=== PATIENT | female | born 1990 | race Caucasian/White ===

== ENCOUNTER → 2016-10-04 | Outpatient (CLI) | payer BC ==
[~2016-10-04] MED LIST: CRESTOR10 MG PO; LOPID600 M1 PO; Lortab 5/500 501 TAB PO; SYNTHROID,LEV100 MCG PO; SYNTHROID,LEVO75 MCG PO; ZITHROMAX250 MG PO; ZOFRAN ODT4 MG SL
== END | disposition home or self-care (01) ==
LOC: US 07:20
DX: K80.20 Calculus of gallbladder without cholecystitis without obstruction (principal)

== ENCOUNTER → 2016-11-07 | Day surgery (SDC) | payer BC ==
[~2016-11-07] VITALS: Ht 165.1 cm; Wt 90.7 kg
[~2016-11-07] MED LIST changes: +BIRTH CONTROL PO; +HYDROCODONE BIT1 T11 PO; +NORCO 10-325 T1 EACH PO
--- NOTE | ~2016-11-07 | O ---
[place], [place] O[facility]AT[id number] UNIT #: [id number] ROOM: DOCTOR: FRANK DIMAS MD BIRTHDATE: [birth year] DOS: 11/07/2016 PREOPERATIVE DIAGNOSIS: Symptomatic gallstones. POSTOPERATIVE DIAGNOSIS: Symptomatic gallstones. PROCEDURE: Laparoscopic cholecystectomy. SURGEON: Frank Dimas MD [employer]SHM[employer]OW MAKER: MS3. ANESTHESIA: General with endotracheal intubation. INDICATIONS: This is a 26-year-old lady with a history of symptomatic gallstones, who is here for the above-mentioned procedure. The procedure and its complications were explained to the patient in detail. Complications that were discussed included but were not limited to bleeding, infection, hematoma/seroma/abscess formation, biloma formation, inadvertent injury to the common bile duct and incisional hernia formation and prolonged postoperative pain. She agreed to proceed. DESCRIPTION OF PROCEDURE: After identifying the patient, the patient was brought to the operating suite and laid in the supine position. After induction of general anesthesia, timeout procedure was called and the parts were then painted and draped in the usual sterile fashion. An incision was made in a curvilinear fashion below the umbilicus. The skin and the subcutaneous tissue were incised. The fascia was incised and 2 stay sutures with 0 Vicryl were taken on either side. The peritoneum was opened and a 12 mm Juancarlos port was introduced into the peritoneal cavity. Pneumoperitoneum was created. Under direct vision, an epigastric incision of 10 mm and two 5 mm incisions were made in the right upper quadrant and appropriate size ports were introduced. The gallbladder was retracted superiorly and laterally and multiple chronic omental adhesions were taken down with the help of blunt dissection with the help of electrocautery. Thereafter, the cystic duct and the cystic artery were meticulously dissected until the critical view of safety was obtained and the triangle of Calot was identified. Thereafter, the cystic duct was clipped 3 times and cut between the first and the second clip. The cystic artery was similarly clipped and cut. The gallbladder was then removed from the bed of the gallbladder and placed in an EndoCatch bag. It was removed from the peritoneal cavity and sent for histopathological diagnosis. After hemostasis was confirmed in the liver bed and the right upper quadrant and the epigastric ports were removed and there was no bleeding seen. The umbilical port was also removed and the 2 stay sutures were tied together as well as an additional 0 Vicryl stitch was taken to approximate the fascia. Thereafter, the edges of the skin were approximated with the help of 4-0 Vicryl after the edges of the skin were infiltrated with 1% plain lidocaine. Dressings were given to all the 4 incisions. The patient tolerated the procedure well. She was extubated uneventfully and brought back to the recovery room in a stable fashion. Dr. Frank Dimas, the attending surgeon, was present throughout the operating case. [place], [place] OPERATIVE NOTE NAME: JOB TAM UNIT #: [id number] ROOM: DOCTOR: FRANK DIMAS MD BIRTHDATE: [birth year] Frank Dimas MD CM:OPRECORD:OPERATIVE NOTE [id number] FRANK DIMAS MD 11/07/16 1420 interface
[2016-11-07 12:10] VITALS: BP 108/62
[2016-11-07 12:25] VITALS: BP 113/63
[2016-11-07 12:40] VITALS: BP 114/66
[2016-11-07 12:55] VITALS: BP 119/66
[2016-11-07 13:10] VITALS: BP 116/68
== END | disposition home or self-care (01) ==
LOC: SDC 11-01 11:00
DX: K80.10 Calculus of gallbladder with chronic cholecystitis without obstruction (principal); E03.9 Hypothyroidism, unspecified; E78.5 Hyperlipidemia, unspecified; Z87.891 Personal history of nicotine dependence; Z83.3 Family history of diabetes mellitus; Z80.7 Family history of other malignant neoplasms of lymphoid, hematopoietic and related tissues

== ENCOUNTER 2018-05-10 03:39 | Inpatient (IN) | payer BC ==
[2018-05-10] VITALS (8 sets, daily range): BP systolic 104–148; BP diastolic 58–91
[~2018-05-10] VITALS: Ht 165.1 cm; Wt 99.8 kg
[~2018-05-10 03:39] MED LIST changes: -BIRTH CONTROL PO; +LO LOESTRIN FE1 EACH PO; -SYNTHROID,LEVO75 MCG PO; +SYNTHROID,LEVO88 MCG PO
[2018-05-10 04:31] LABS: BILIRUBIN NEGATIVE (NEGATIVE); BLOOD NEGATIVE (NEGATIVE); CLARITY SL CLOUDY (CLEAR); COLOR YELLOW (YELLOW); GLUCOSE NEGATIVE (NEGATIVE); KETONE 1+ (NEGATIVE); LEUKO ESTERASE NEGATIVE (NEGATIVE); NITRITE NEGATIVE (NEGATIVE); SPECIFIC GRAVITY 1.025 (1.005-1.030); UROBILINOGEN 0.2 E.U./dl (0.2-1.0)
[2018-05-10 04:33] LABS: BASO # 0.1 10*3/uL (0.0-0.1); BASO % 0.3 % (0.0-1.0); EOS # 0.1 10*3/uL (0.0-0.4); EOS % 0.7 % (1.0-4.0); HEMATOCRIT 42.7 % (37.0-47.0); HEMOGLOBIN 14.1 g/dl (12.0-16.0); LYMPH # 2.5 10*3/uL (1.3-4.4); LYMPH % 12.9 % (27.0-41.0); MEAN CORPUSCULAR HGB 30.7 pg (27.0-31.0); MONO # 1.2 10*3/uL (0.1-1.0); NEUT # 15.5 10*3/uL (2.3-7.9); NEUT % 79.8 % (47.0-73.0); PLATELET COUNT AUTOMATED 257 10*3/uL (130-400); RED BLOOD COUNT 4.59 10*6/uL (4.10-5.10); RED CELL DISTRI WIDTH 12.3 % (0-14.5); WHITE BLOOD COUNT 19.4 10*3/uL (4.8-10.8)
[2018-05-10 04:44] LABS: LIPASE 97 U/L (73-393)
[2018-05-10 04:48] LABS: BACTERIA 2+; EPITHELIAL CELLS 20-25; MUCOUS 2+
[2018-05-11] VITALS: BP 113/60
[2018-05-11 06:34] LABS: BASO % 0.4 % (0.0-1.0); EOS # 0.3 10*3/uL (0.0-0.4); EOS % 3.7 % (1.0-4.0); HEMATOCRIT 37.9 % (37.0-47.0); LYMPH # 2.5 10*3/uL (1.3-4.4); LYMPH % 31.6 % (27.0-41.0); MEAN CORPUSCULAR HGB 30.5 pg (27.0-31.0); MEAN CORPUSCULAR HGB CONC 31.4 g/dl (33.0-37.0); MEAN PLATELET VOLUME 13.8 fl (9.6-12.3); MONO # 0.8 10*3/uL (0.1-1.0); MONO % 9.9 % (3.0-9.0); NEUT # 4.3 10*3/uL (2.3-7.9); NEUT % 54.3 % (47.0-73.0); PLATELET COUNT AUTOMATED 188 10*3/uL (130-400); RED CELL DISTRI WIDTH 12.5 % (0-14.5); WHITE BLOOD COUNT 7.9 10*3/uL (4.8-10.8)
[2018-05-11 06:38] LABS: HEMOGLOBIN 11.9 g/dl (12.0-16.0); MEAN CELL VOLUME 97.2 fl (81.0-99.0)
[2018-05-11 07:03] LABS: ALBUMIN 2.8 gm/dl (3.1-4.5); ALKALINE PHOSPHATASE 86 U/L (45-117); BUN 8 mg/dl (7-24); CHLORIDE 107 mmol/L (98-107); CHOLESTEROL 302 mg/dL (<200); CREATININE 0.78 mg/dL (0.55-1.02); HDL CHOLESTEROL 35 mg/dl (40-60); PHOSPHOROUS 3.2 mg/dL (2.5-4.9); POTASSIUM 4.2 mmol/L (3.5-5.1); SGOT/AST 78 IU/L (3-35); SGPT/ALT 45 U/L (12-78); SODIUM 142 mmol/L (136-145); TOTAL PROTEIN 6.5 gm/dL (6.4-8.2); TRIGLYCERIDES 457 mg/dl (<150)
[2018-05-11 07:08] LABS: THYROID STIM HORMONE (HS) 0.316 uIU/ml (0.358-4.75)
[2018-05-11 08:00] VITALS: BP 109/65
[2018-05-11 12:00] VITALS: BP 138/95
[2018-05-11 16:00] VITALS: BP 108/76
== END 2018-05-11 18:15 | disposition home or self-care (01) | DRG 389 ==
LOC: ED 03:39 → EDHOLD 05:47 → 5E 05:47
PROVIDERS: Emergency Medicine; Student in an Organized Health Care Education/Training Program
DX: K56.600 Partial intestinal obstruction, unspecified as to cause (principal); R65.10 Systemic inflammatory response syndrome (SIRS) of non-infectious origin without acute organ dysfunction; R82.71 Bacteriuria; E03.9 Hypothyroidism, unspecified; K76.0 Fatty (change of) liver, not elsewhere classified; E66.9 Obesity, unspecified; E78.2 Mixed hyperlipidemia; Z90.49 Acquired absence of other specified parts of digestive tract; Z90.721 Acquired absence of ovaries, unilateral; Z88.0 Allergy status to penicillin; Z91.018 Allergy to other foods; Z82.49 Family history of ischemic heart disease and other diseases of the circulatory system; Z80.8 Family history of malignant neoplasm of other organs or systems; Z87.891 Personal history of nicotine dependence; Z79.899 Other long term (current) drug therapy; Z68.36 Body mass index [BMI] 36.0-36.9, adult

== ENCOUNTER → 2018-11-30 | Outpatient (CLI) | payer BC | END | disposition home or self-care (01) | LOC: US 13:00 | DX: E03.9 Hypothyroidism, unspecified (principal) ==

== ENCOUNTER → 2018-12-07 | Outpatient (CLI) | payer BC ==
[2018-12-07 09:04] LABS: FREE T4 1.36 ng/dl (0.76-1.46)
[2018-12-07 09:09] LABS: THYROID STIM HORMONE (HS) 2.49 uIU/ml (0.358-4.75)
[2018-12-08 08:06] LABS: LDL CHOLESTEROL (DIRECT) 91 mg/dL (0-99)
== END | disposition home or self-care (01) ==
LOC: LAB 07:55
PROVIDERS: Internal Medicine Endocrinology, Diabetes & Metabolism
DX: E03.9 Hypothyroidism, unspecified (principal); E78.1 Pure hyperglyceridemia; E55.9 Vitamin D deficiency, unspecified; Z68.36 Body mass index [BMI] 36.0-36.9, adult

== ENCOUNTER 2019-07-08 12:12 | Emergency (ER) | payer BC ==
[~2019-07-08] VITALS: Ht 167.6 cm; Wt 104.3 kg
[2019-07-08 13:19] LABS: BASO # 0.1 10*3/uL (0.0-0.1); BASO % 0.4 % (0.0-1.0); EOS # 0.3 10*3/uL (0.0-0.4); EOS % 2.2 % (1.0-4.0); HEMATOCRIT 39.5 % (37.0-47.0); HEMOGLOBIN 12.7 g/dl (12.0-16.0); LYMPH # 4.1 10*3/uL (1.3-4.4); LYMPH % 33.5 % (27.0-41.0); MEAN CELL VOLUME 96.3 fl (81.0-99.0); MEAN CORPUSCULAR HGB CONC 32.2 g/dl (33.0-37.0); MEAN PLATELET VOLUME 13.1 fl (9.6-12.3); MONO % 8.2 % (3.0-9.0); NEUT # 6.7 10*3/uL (2.3-7.9); NEUT % 55.2 % (47.0-73.0); PLATELET COUNT AUTOMATED 262 10*3/uL (130-400); RED CELL DISTRI WIDTH 12.5 % (0-14.5); WHITE BLOOD COUNT 12.1 10*3/uL (4.8-10.8)
[2019-07-08 13:33] LABS: ALBUMIN 3.5 gm/dl (3.1-4.5); ALKALINE PHOSPHATASE 34 U/L (45-117); BUN 13 mg/dl (7-24); CHLORIDE 109 mmol/L (98-107); CREATININE 1.03 mg/dL (0.55-1.02); LIPASE 106 U/L (73-393); POTASSIUM 3.7 mmol/L (3.5-5.1); SGOT/AST 13 IU/L (3-35); SGPT/ALT 16 U/L (12-78); SODIUM 139 mmol/L (136-145); TOTAL PROTEIN 7.5 gm/dL (6.4-8.2)
[2019-07-08 13:38] LABS: BILIRUBIN NEGATIVE (NEGATIVE); BLOOD NEGATIVE (NEGATIVE); CLARITY CLEAR (CLEAR); COLOR YELLOW (YELLOW); GLUCOSE NEGATIVE (NEGATIVE); KETONE NEGATIVE (NEGATIVE); LEUKO ESTERASE NEGATIVE (NEGATIVE); NITRITE NEGATIVE (NEGATIVE); PH 6.5 (5.0-9.0); UROBILINOGEN 0.2 E.U./dl (0.2-1.0)
[2019-07-08 13:40] LABS: BACTERIA 2+
[2019-07-08 13:45] LABS: TROPONIN I < 0.015 ng/ml (<0.045)
== END 2019-07-08 14:42 | disposition home or self-care (01) ==
LOC: ED 12:12
PROVIDERS: Nurse Practitioner Family
DX: R00.2 Palpitations (principal); E03.9 Hypothyroidism, unspecified; E78.00 Pure hypercholesterolemia, unspecified; Z87.891 Personal history of nicotine dependence; Z79.899 Other long term (current) drug therapy; Z88.0 Allergy status to penicillin; Z91.018 Allergy to other foods

== ENCOUNTER → 2019-12-13 | Outpatient (CLI) | payer BC ==
[2019-12-13 09:06] LABS: ALBUMIN 3.6 gm/dl (3.1-4.5); ALKALINE PHOSPHATASE 38 U/L (45-117); BUN 14 mg/dl (7-24); CHLORIDE 103 mmol/L (98-107); CHOLESTEROL 152 mg/dL (<200); CREATININE 0.92 mg/dL (0.55-1.02); HDL CHOLESTEROL 46 mg/dl (40-60); LDL CHOLESTEROL 61 mg/dL (9-159); POTASSIUM 3.5 mmol/L (3.5-5.1); SGOT/AST 15 IU/L (3-35); SGPT/ALT 23 U/L (12-78); SODIUM 135 mmol/L (136-145); TOTAL PROTEIN 7.4 gm/dL (6.4-8.2); TRIGLYCERIDES 226 mg/dl (<150); VLDL CHOLESTEROL 45 mg/dL (6-40)
[2019-12-14 04:06] LABS: DHEA SULFATE 69.4 ug/dL (84.8-378.0); PROLACTIN 16.8 ng/mL (4.8-23.3)
== END | disposition home or self-care (01) ==
LOC: LAB 08:21
PROVIDERS: Internal Medicine Endocrinology, Diabetes & Metabolism
DX: E03.9 Hypothyroidism, unspecified (principal); E78.1 Pure hyperglyceridemia; E55.9 Vitamin D deficiency, unspecified; E66.09 Other obesity due to excess calories; N92.6 Irregular menstruation, unspecified

== ENCOUNTER 2024-09-23 16:59 | Emergency (ER) | payer OTHER ==
[~2024-09-23] VITALS: Ht 165.1 cm; Wt 104.3 kg
[2024-09-23] MEDS ORDERED: methylPREDNISolone sod succ 40 MG VIAL IV ONE (17:40)
[2024-09-23] MEDS ORDERED: FAMOTIDINE 20 MG TAB PEG ONE (17:40)
[2024-09-23] MEDS ORDERED: Cetirizine Hydrochloride 10 MG TAB PO ONE (17:45)
[2024-09-23 18:15] LABS: BILIRUBIN Negative (Negative); BLOOD 2+ (Negative); CLARITY Clear (Clear); COLOR Yellow (Yellow); GLUCOSE Negative (Negative); KETONE 1+ (Negative); LEUKO ESTERASE 1+ (Negative); NITRITE Negative (Negative); PH 5.5 (4.5-8.0)
[2024-09-23 18:17] LABS: BUN 8 mg/dl (9-23); CHLORIDE 105 mmol/L (98-107); POTASSIUM 3.9 mmol/L (3.4-5.1)
[2024-09-23 18:22] LABS: BACTERIA 1+; EPITHELIAL CELLS 16-20; FINE GRANULAR CAST 0-2
[2024-09-23 18:40] LABS: HEMATOCRIT 37.8 % (37.0-47.0); MANUAL DIFF REFLEX YES; MEAN CELL VOLUME 89.4 fl (81.0-99.0); MEAN CORPUSCULAR HGB 26.7 pg (27.0-31.0); MEAN CORPUSCULAR HGB CONC 29.9 g/dl (33.0-37.0); MEAN PLATELET VOLUME 12.7 fl (9.6-12.3); PLATELET COUNT AUTOMATED 228 10*3/uL (130-400); RED BLOOD COUNT 4.23 10*6/uL (4.10-5.10); RED CELL DISTRI WIDTH 20.1 % (0-14.5); WHITE BLOOD COUNT 10.5 10*3/uL (4.8-10.8)
[2024-09-23 18:52] LABS: PLATELET SUFFICIENCY NORMAL (NORMAL); TOTAL CELLS COUNTED 100 #CELLS
[2024-09-23] MEDS ORDERED: PREDNISONE20 M1 PO (18:55)
[2024-09-23] MEDS ORDERED: CEPHALEXIN500 M1 PO (18:55)
== END 2024-09-23 18:55 | disposition home or self-care (01) ==
LOC: ED 16:59
PROVIDERS: Emergency Medicine
DX: K12.2 Cellulitis and abscess of mouth (principal); Z88.0 Allergy status to penicillin; Z91.018 Allergy to other foods; Z79.899 Other long term (current) drug therapy; Z90.49 Acquired absence of other specified parts of digestive tract; Z87.891 Personal history of nicotine dependence

== ENCOUNTER 2025-05-05 21:21 | Emergency (ER) | payer OTHER ==
[~2025-05-05] VITALS: Ht 165.1 cm; Wt 99.8 kg
[~2025-05-05 21:21] MED LIST changes: +CEPHALEXIN500 M1 PO; +PREDNISONE20 M1 PO
== END 2025-05-06 00:11 | disposition home or self-care (01) ==
LOC: ED 21:21
DX: S05.91XA Unspecified injury of right eye and orbit, initial encounter (principal); Z88.0 Allergy status to penicillin; Z91.018 Allergy to other foods; Z79.899 Other long term (current) drug therapy; Z90.49 Acquired absence of other specified parts of digestive tract; Z98.890 Other specified postprocedural states; Z87.891 Personal history of nicotine dependence; W22.8XXA Striking against or struck by other objects, initial encounter; Y93.89 Activity, other specified; Y92.89 Other specified places as the place of occurrence of the external cause; Y99.8 Other external cause status